=== PATIENT | female | born 1975 | race African-American/Black ===

== ENCOUNTER → 2024-06-24 | Day surgery (SDC) | payer MEDICAID ==
[~2024-06-24] VITALS: Ht 160 cm; Wt 86.2 kg
[~2024-06-24] MED LIST: BUPIVACAINE HCL/PF 0.5% (5MG/ML) 10ML ONE; OMEG-91 PO; PREN-118 PO; SKIN ADHESIVE 0.7 GM EA TOP ONE; ZINC100T2 PO
[2024-06-24 09:31] LABS: UCG SCREEN NEGATIVE
[2024-06-24] MEDS: SODIUM CHLORIDE 0.9% 1,000 ML IV SCH (10:06)
[2024-06-24] MEDS: HYDROMORPHONE HCL/PF 1MG/ML INJ IV PRN (12:51)
[2024-06-24 13:37] VITALS: BP 145/80; PULSE 83; RESP 24
[2024-06-24] MEDS: ONDANSETRON HCL 4MG/2ML INJ IV PRN (14:54)
== END | disposition home or self-care (01) ==
LOC: OR 08:54
PROVIDERS: ATTEND Surgery
DX: K80.10 Calculus of gallbladder with chronic cholecystitis without obstruction (principal); E66.9 Obesity, unspecified; Z79.899 Other long term (current) drug therapy; Z98.890 Other specified postprocedural states; Z68.33 Body mass index [BMI] 33.0-33.9, adult
CPT/HCPCS: 47562; 81025; 82962; 88304; J3490; J2405; J1171; J7030